=== PATIENT | male | born 2000 | race Caucasian/White ===

== ENCOUNTER 2023-05-20 18:40 | Emergency (ER) | payer BC, SELFPAY ==
[2023-05-20 18:44] VITALS: BP 173/107; PULSE 62; RESP 24; TEMP 36.8; O2SAT 100; BMI 23.0
--- NOTE | 2023-05-20 19:26 | CRLHL7_ITS ---
For Patients: As a result of the Century Cures Act, medical imaging exams and procedure reports are released immediately into your electronic medical record. You may view this report before your referring provider. If you have questions, please contact your health care provider. INDICATION: Dizziness, new headache. TECHNIQUE: CT head without contrast. COMPARISON: None. FINDINGS: CSF spaces: Within normal limits for age. Brain parenchyma and extra-axial spaces: The wagner-white differentiation is normal. No sign of mass, hemorrhage, or midline shift. No extra-axial fluid collection. Skull base and calvarium: The visualized paranasal sinuses and mastoid air cells demonstrate no acute or significant findings. The visualized orbits are grossly unremarkable. No skull fractures. IMPRESSION: No acute intracranial abnormality. Please note that all CT scans at this facility use dose modulation, iterative reconstruction, and/or weight-based dosing when appropriate to reduce radiation dose to as low as reasonably achievable. Dictated by Zane Wolfe MD @ 05/20/2023 8:27:21 PM (Electronically Signed)
[2023-05-20] MEDS: 0.9 % SODIUM CHLORIDE 1000 ml 1,000 ML IV (19:35)
--- NOTE | 2023-05-20 19:35 | ED_ITS ---
HPI - General Adult General Chief complaint: Unspecified Complaint, Adult Stated complaint: Difficulty breathing, neck pain, headache Time Seen by Provider: 05/20/23 18:45 Source: patient and family Mode of arrival: ambulatory Limitations: no limitations History of Present Illness HPI narrative: Adair is a 23-year-old male past medical history includes autism, depression presents emerged department via private car with mother with a headache, difficulty with breathing and neck pain. Patient states that one month ago he was on a family vacation, he was drinking alcohol beverages, he did have an episode of dizziness and lightheadedness and headache. He was evaluated in the emergency department at that time, thought it was due to dehydration. The last 2 weeks he has had similar situation, usually for 5 times per week he has these episodes of lightheadedness/dizziness and any left-sided headache pounding in nature, no associated nausea vomiting, he gets some visual floaters. He did have a recent normal eye exam. No history of any migraines in the family. He feels is progressively get worse, at times he gets increased short of breath, no real chest pain however increased anxiety, tonight at dinner he it developed once more, he had some shortness of breath and some neck pain. This has improved since being in the emergency department. Headaches usually get resolved with ibuprofen, but they are worse at night. Denies any night sweats or weight loss. Usually asked to sit or lay down get them to resolve. 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 He was seen by primary care provider today no imaging was obtained, they did some lab work which has not returned. Denies any focal weakness, paresthesias or tingling of the upper lower extremities. Patient denies any drug use, denies any smoking or vaping. No other concerns at this time. Related Data Home Medications Medication Instructions Recorded Confirmed paroxetine HCl 40 mg tablet 40 mg PO DAILY 05/20/23 05/20/23 Allergies Allergy/AdvReac Type Severity Reaction Status Date / Time No Known Drug Allergies Allergy Verified 05/20/23 18:50 Review of Systems Status of ROS: Reports: 10 or more systems reviewed and unremarkable except as noted in History and below PFSH PFSH Social History Smoking Status: Never smoker Do you use any of these nicotine containing products: None How often do you have a drink containing alcohol: never AUDIT-C Alcohol total score: 0 Non-prescribed substance use: denies use Exam Narrative: Exam Narrative: General: No obvious distress laying comfortably, nontoxic in appearance, well groomed HEENT: Pupils equal round reactive to light, extraocular muscles intact, tympanic membranes within normal limits bilaterally Neck: Nontender to palpation, supple, full range of motion Lungs: Clear to auscultation bilaterally Heart: Normal sinus rhythm S1-S2 Abdomen; soft nontender, bowel sounds present Muscle skeletal: +5 strength in upper lower extremities Neuro: Alert awake and oriented x3, GCS 15, cranial nerves 2-12 grossly intact, no focal deficits Unable to elicit dizziness with head movement Gait: Within normal limits Const: Vital Signs, click to edit/add: Vital Signs - 24 hr 05/20/23 18:44 05/20/23 20:00 Temperature 98.2 F Pulse Rate [Pulse Oximeter] 62 Pulse Rate [orthos tatic lying] 52 L Pulse Rate [orthos tatic sitting] 53 L Pulse Rate [orthos tatic standing] 63 Respiratory Rate 24 Blood Pressure [Ri ght Upper Arm] 173/107 H Blood Pressure [or thostatic lying] 143/77 H Blood Pressure [or thostatic sitting] 153/91 H Blood Pressure [or thostatic standing ] 150/107 H Pulse Oximetry 100 Oxygen Delivery Me thod Room Air Course Course Hospital Course: 7:30 PM: AIDET performed. vitals show elevated blood pressure, will repeat, work up will include, IV peripheral, 0.9 normal saline bolus, will obtain orthostatic blood pressures, EKG, point of care troponin, D-dimer, TSH, CMP, CBC, CT head wo contrast, portable XR chest one view Differential diagnosis include but not limited to subarachnoid hemorrhage, meningitis, encephalitis, intracerebral hemorrhage, other consideration migraine, cluster headache, tension headache, [employer] vasculitis, mass lesion, for his shortness of breath, pots, PE, pneumonia, pneumothorax, pericarditis, aortic dissection, ME, myocarditis, chest wall pain, GERD, for his neck pain arthritis, fracture, spinal stenosis sprain or strain. ECG showed a sinus bradycardia, bpm 49, no acute ST changes, no comparisons. Per ED provider. Reevaluation(s) Time of Reevaluation #1: 20:30 Reevaluation #1: Imaging: XR chest portable one view: No consolidation, pleural effusion or pneumothorax. No acute abnormality. Per ED provider FINDINGS: CSF spaces: Within normal limits for age. Brain parenchyma and extra-axial spaces: The wagner-white differentiation is normal. No sign of mass, hemorrhage, or midline shift. No extra-axial fluid collection. Skull base and calvarium: The visualized paranasal sinuses and mastoid air cells demonstrate no acute or significant findings. The visualized orbits are grossly unremarkable. No skull fractures. IMPRESSION: No acute intracranial abnormality. CBC showed no or mole hemoglobin, white blood cell similar to previous, metabolic panel showed no electrolyte abnormalities, normal renal function, D- dimer negative, point of care troponin normal, TSH pending, EKG sinus bradycardia. CT head showed no acute intracranial abnormality, patient was mildly orthostatic upon standing heart rate went from 62 to 52, no change in blood pressure. He is feeling better after above care given. Plan would be to discharge he will follow-up with primary care provider as scheduled over the next 3-5 days, for ER followup and recheck, return if worsened symptoms. Vital Signs Vital signs: Initial Vital Signs Temperature 98.2 F 05/20/23 18:44 Temperature Source Temporal Artery Scan 05/20/23 18:44 Pulse Rate 62 05/20/23 18:44 Pulse Rhythm Regular 05/20/23 18:44 Respiratory Rate 24 05/20/23 18:44 Blood Pressure 173/107 H 05/20/23 18:44 Blood Pressure Mean 129 H 05/20/23 18:44 Pulse Oximetry 100 05/20/23 18:44 Oxygen Delivery Method Room Air 05/20/23 18:44 Vital Signs Temperature 98.2 F 05/20/23 18:44 Pulse Rate 62 05/20/23 18:44 Respiratory Rate 24 05/20/23 18:44 Blood Pressure 173/107 H 05/20/23 18:44 Pulse Oximetry 100 05/20/23 18:44 Oxygen Delivery Method Room Air 05/20/23 18:44 Temperature 98.2 F 05/20/23 18:44 Pulse Rate 52 L 05/20/23 20:00 Respiratory Rate 24 05/20/23 18:44 Blood Pressure 143/77 H 05/20/23 20:00 Pulse Oximetry 100 05/20/23 18:44 Oxygen Delivery Method Room Air 05/20/23 18:44 Medical Decision Making Lab Data Labs: Lab Results 05/20/23 Range/Units 19:35 WBC 3.54 L (4.50-11.00) K/uL RBC 5.36 (4.30-5.90) m/uL Hgb 15.9 (13.5-17.5) gm/dL Hct 46.7 (37.0-53.0) % MCV 87 (80-100) fL MCH 30 (26-34) pg MCHC 34 (32-36) gm/dL RDW Coeff of Al 11.8 (11.5-15.5) % Plt Count 282 (140-440) K/uL Neut % (Auto) 49.1 (42.0-72.0) % Lymph % (Auto) 36.7 (20-44) % [place] % (Auto) 10.5 (0.0-11.0) % Eos % (Auto) 3.1 (0.0-7.0) % Baso % (Auto) 0.6 (0.0-3.0) % Neut # (Auto) 1.70 (1.7-7.0) K/uL Lymph # (Auto) 1.30 (0.90-2.90) K/uL [place] # (Auto) 0.40 (0.00-0.90) K/UL Eos # (Auto) 0.10 (0.00-0.50) K/uL Baso # (Auto) 0.00 (0.00-0.30) K/uL Abs Immat Gran (auto) 0.00 (0.00-0.30) K/uL Imm/Tot Granulo (auto) 0.0 % D-Dimer Quant (PE/DVT) < 0.27 (0.00-0.50) ug/ml Sodium 140 (135-149) mmol/L Potassium 3.7 (3.6-5.1) mmol/L Chloride 102 (96-114) mmol/L Carbon Dioxide 27 (20-32) mmol/L BUN 15 (5-24) mg/dL Creatinine 0.7 (0.5-1.5) mg/dL Estimated Creat Clear 171.36 Estimated GFR 134 ml/min Glucose 90 (60-115) mg/dL Calcium 9.8 (8.4-10.6) mg/dL Total Bilirubin 0.6 (0.1-1.5) mg/dL AST 24 (12-35) U/L ALT 20 (4-50) U/L Alkaline Phosphatase 31 L (40-150) U/L Total Protein 7.9 (6.0-8.3) g/dL Albumin 4.9 (3.3-5.0) g/dL TSH 2.610 (0.270-4.20) uIU/mL POC Troponin I 0.02 (0.01-0.04) ng/ml Discharge Plan Discharge Clinical Impression: Shortness of breath, Lightheadedness, Headache Patient Disposition: Home, Self-Care Condition: Improved Instructions: Dizziness (ED), Shortness of Breath (ED) Additional Instructions: Patient is to follow-up with a primary care provider over the next 3-5 days for ED follow-up and recheck, return if worsening symptoms. Prescriptions: No Action paroxetine HCl 40 mg tablet 40 mg PO DAILY Follow Up/Referrals: Neo Reinoso MD [Primary Care Provider] - Stand Alone Forms: [employer] Info Instructions
[2023-05-20 19:44] LABS: Basophils Percent Auto 0.6 % (0.0-3.0); Eosinophils Percent Auto 3.1 % (0.0-7.0); Hematocrit 46.7 % (37.0-53.0); Hemoglobin* 15.9 gm/dL (13.5-17.5); Lymphocytes Percent Auto 36.7 % (20-44); Mean Corpuscular HGB Conc 34 gm/dL (32-36); Mean Corpuscular Hemoglobin 30 pg (26-34); Mean Corpuscular Volume 87 fL (80-100); Monocytes Percent Auto 10.5 % (0.0-11.0); Neutrophils Percent Auto 49.1 % (42.0-72.0); Platelet Count* 282 K/uL (140-440); RDW Coefficient of Variation % 11.8 % (11.5-15.5); Red Blood Count 5.36 m/uL (4.30-5.90); White Blood Count* 3.54 K/uL (4.50-11.00)
[2023-05-20 19:52] LABS: Slide Review Reflex No
[2023-05-20 19:59] LABS: Troponin, Point-of-Care* 0.02 ng/ml (0.01-0.04)
[2023-05-20 20:00] VITALS: BP 143/77; BP 150/107; BP 153/91; PULSE 52; PULSE 53; PULSE 63
[2023-05-20 20:00] LABS: Albumin* 4.9 g/dL (3.3-5.0); Chloride* 102 mmol/L (96-114)
[2023-05-20 20:01] LABS: Potassium* 3.7 mmol/L (3.6-5.1); Sodium* 140 mmol/L (135-149)
[2023-05-20 20:03] LABS: Alkaline Phosphatase* 31 U/L (40-150); Aspartate Amino Transferase* 24 U/L (12-35); Bilirubin Total* 0.6 mg/dL (0.1-1.5); Blood Urea Nitrogen* 15 mg/dL (5-24); Carbon Dioxide* 27 mmol/L (20-32); Creatinine* 0.7 mg/dL (0.5-1.5); Est. Creatinine Clearance* 171.36; Estimated Glomerular Filt Rate 134 ml/min; Total Protein* 7.9 g/dL (6.0-8.3)
[2023-05-20 20:04] LABS: Alanine Aminotransferase* 20 U/L (4-50); Calcium* 9.8 mg/dL (8.4-10.6); Glucose* 90 mg/dL (60-115)
[2023-05-20 20:07] LABS: D Dimer Quantitative* < 0.27 ug/ml (0.00-0.50)
--- NOTE | 2023-05-20 20:51 | CRLHL7_ITS ---
For Patients: As a result of the Cures Act, medical imaging exams and procedure reports are released immediately into your electronic medical record. You may view this report before your referring provider. If you have questions, please contact your health care provider. INDICATION: Shortness of breath, neck chest pain, neck pain TECHNIQUE: Chest radiograph 1 view COMPARISON: None FINDINGS: Mediastinum: The mediastinum is normal in appearance. The heart silhouette is normal in size and morphology. Lung: Both lungs are unremarkable in appearance. No sign of pleural effusion seen. No pneumothorax is identified. Bone and Soft tissue: Unremarkable for age. IMPRESSION: 1. No acute cardiopulmonary disease is seen. Dictated by: Олег Torres MD @ 05/20/2023 21:51:44 (Electronically Signed)
[2023-05-20 21:30] VITALS: BP 133/73; PULSE 55; RESP 16; TEMP 36.8
== END 2023-05-20 21:31 | disposition home or self-care (01) ==
PROVIDERS: Emergency Provider Student in an Organized Health Care Education/Training Program; PCP Family Medicine
DX: R06.02 Shortness of breath (principal); R42 Dizziness and giddiness; R51.9 Headache, unspecified
CPT/HCPCS: 36415; 70450; 71045; 80053; 84443; 84484; 85025; 85379; 93005; 96361; 99283; 99284; 99285; J7030